=== PATIENT | female | born 1950 | race Caucasian/White ===

== ENCOUNTER → 2021-03-29 | Outpatient (CLI) | payer MEDICARE ==
[~2021-03-29] MED LIST: CITA20; CITA20 PO; ENOX80I; IBUP400; METO25ER; MULVITB; OXYC5; Simvastatin20 MG PO; Vitamin D2000 UNIT PO; WARF6; WARF7.5
[2021-03-29 20:26] LABS: Prothrombin Time Results 48.8 Sec (9.7-11.5)
[2021-03-29 20:30] LABS: International Normalized Ratio 4.95
== END | disposition home or self-care (01) ==
LOC: LAB SHORT 19:07 → LAB 19:07
PROVIDERS: Physician Assistant
DX: Z79.01 Long term (current) use of anticoagulants (principal); Z51.81 Encounter for therapeutic drug level monitoring; Z79.899 Other long term (current) drug therapy
CPT/HCPCS: 85610; 85730

== ENCOUNTER → 2021-08-27 | Outpatient (CLI) | payer MEDICARE ==
[2021-08-27 10:28] LABS: BASOPHILS ABSOLUTE AUTO 0.05 K/mm3 (0.00-0.23); BASOPHILS PERCENT AUTO 1 % (0-2); EOSINOPHILS ABSOLUTE AUTO 0.05 K/mm3 (0.00-0.68); EOSINOPHILS PERCENT AUTO 1 % (0-6); Hematocrit 41.4 % (33.0-51.0); Hemoglobin 14.1 g/dL (11.5-16.0); IMMATURE GRAN ABSOLUTE AUTO 0.01 K/mm3 (0.00-0.10); IMMATURE GRAN PERCENT AUTO 0 % (0-1); LYMPHOCYTES ABSOLUTE AUTO 1.06 K/mm3 (0.84-5.20); LYMPHOCYTES PERCENT AUTO 17 % (21-46); MONOCYTES ABSOLUTE AUTO 0.37 K/mm3 (0.16-1.47); MONOCYTES PERCENT AUTO 6 % (4-13); Mean Corpuscular HGB 29.1 pg (26.0-34.0); Mean Corpuscular HGB Conc 34.1 g/dL (31.5-36.5); Mean Corpuscular Volume 85 fL (80-100); Mean Platelet Volume 9.6 fL (9.1-12.4); NEUTROPHILS ABSOLUTE AUTO 4.66 K/mm3 (1.96-9.15); NEUTROPHILS PERCENT AUTO 75 % (41-73); Platelet Count 266 K/mm3 (150-400); RDW Coefficient Variation 13.1 % (11.7-14.2); RDW Standard Deviation 40.5 fL (35.1-46.3); Red Blood Cell Count 4.85 M/mm3 (3.80-5.20)
[2021-08-27 11:16] LABS: International Normalized Ratio 2.34; Prothrombin Time Results 23.2 Sec (9.7-11.5)
== END | disposition home or self-care (01) ==
LOC: LAB SHORT 10:22
PROVIDERS: Physician Assistant
DX: Z79.01 Long term (current) use of anticoagulants (principal); Z51.81 Encounter for therapeutic drug level monitoring; R19.7 Diarrhea, unspecified
CPT/HCPCS: 85025; 85610

== ENCOUNTER 2024-07-14 16:28 | Emergency (ER) | payer OTHER, MEDICARE ==
[~2024-07-14] VITALS: Ht 160 cm; Wt 56.2 kg
[~2024-07-14 16:28] MED LIST changes: -METO25ER; +METO25ER PO
[2024-07-14 18:54] LABS: BASOPHILS ABSOLUTE AUTO 0.05 K/mm3 (0.00-0.23); BASOPHILS PERCENT AUTO 0 % (0-2); EOSINOPHILS ABSOLUTE AUTO 0.02 K/mm3 (0.00-0.68); EOSINOPHILS PERCENT AUTO 0 % (0-6); Hematocrit 39.9 % (33.0-51.0); Hemoglobin 13.7 g/dL (11.5-16.0); IMMATURE GRAN ABSOLUTE AUTO 0.07 K/mm3 (0.00-0.10); IMMATURE GRAN PERCENT AUTO 1 % (0-1); LYMPHOCYTES ABSOLUTE AUTO 1.13 K/mm3 (0.84-5.20); LYMPHOCYTES PERCENT AUTO 8 % (21-46); MONOCYTES ABSOLUTE AUTO 0.97 K/mm3 (0.16-1.47); MONOCYTES PERCENT AUTO 6 % (4-13); Mean Corpuscular HGB 29.4 pg (26.0-34.0); Mean Corpuscular HGB Conc 34.3 g/dL (31.5-36.5); Mean Corpuscular Volume 86 fL (80-100); Mean Platelet Volume 9.7 fL (9.1-12.4); NEUTROPHILS ABSOLUTE AUTO 12.81 K/mm3 (1.96-9.15); NEUTROPHILS PERCENT AUTO 85 % (41-73); Platelet Count 274 K/mm3 (150-400); RDW Coefficient Variation 13.7 % (11.7-14.2); RDW Standard Deviation 42.9 fL (35.1-46.3); Red Blood Cell Count 4.66 M/mm3 (3.80-5.20); White Blood Cell Count 15.05 K/mm3 (4.00-11.30)
[2024-07-14 19:14] LABS: Albumin, Blood 4.4 g/dL (3.4-5.0); Albumin/Globulin Ratio 1.6 (0.8-1.8); Bilirubin, Total 0.6 mg/dL (0.1-1.0); Bun/Creatinine Ratio 14.5 (12.0-20.0); Calcium, Blood 9.1 mg/dL (8.5-10.1); Creatinine, Blood 0.97 mg/dL (0.40-1.00); Globulin, Blood 2.8 g/dL (2.2-4.0); Total Protein, Blood 7.2 g/dL (6.4-8.2)
[2024-07-14] MEDS ORDERED: Prinivil10 MG PO (19:38)
[2024-07-14] MEDS ORDERED: Oxybutynin Chlor5 M1 PO (19:39)
[2024-07-14 21:01] LABS: International Normalized Ratio 2.3; Prothrombin Time Results 23.1 Sec (9.7-11.5)
[2024-07-14] MEDS ORDERED: Phytonadione 10 MG in NS 50 ML IV ONE (23:05)
[2024-07-15] MEDS ORDERED: Morphine Sulfate 4 MG/1 ML Injection IV ONE (00:45)
[2024-07-15 02:00] VITALS: BP 109/80
== END 2024-07-15 02:13 | disposition short-term general hospital (02) ==
LOC: ER 16:28
PROVIDERS: Emergency Medicine; Student in an Organized Health Care Education/Training Program
DX: S06.340A Traumatic hemorrhage of right cerebrum without loss of consciousness, initial encounter (principal); S20.211A Contusion of right front wall of thorax, initial encounter; R79.89 Other specified abnormal findings of blood chemistry; I10 Essential (primary) hypertension; E78.5 Hyperlipidemia, unspecified; V89.2XXA Person injured in unspecified motor-vehicle accident, traffic, initial encounter; Z79.01 Long term (current) use of anticoagulants; Z79.899 Other long term (current) drug therapy
CPT/HCPCS: 36415; 70450; 71046; 71260; 72125; 74177; 80053; 84484; 85025; 85610; 85730; 93005; 93010; 96365; 96375; 99285-25; J2270; J3430; L0160; Q9967

== ENCOUNTER 2024-07-22 01:26 | Day surgery (SDC) | payer OTHER, MEDICARE ==
[~2024-07-22 01:26] MED LIST changes: +Oxybutynin Chlor5 M1 PO; +Prinivil10 MG PO; +WARF3 PO; -WARF6
[2024-07-22] MEDS ORDERED: Enoxaparin 80 MG/0.8 ML SYR SC SCH (07:15)
[2024-07-22 10:10] VITALS: BP 117/83
[2024-07-22 10:32] LABS: International Normalized Ratio 1.83; Prothrombin Time Results 18.7 Sec (9.7-11.5)
[2024-07-22] MEDS ORDERED: ENOX80I SC (11:49)
[2024-07-22] MEDS ORDERED: JARDIANCE10 MG PO (11:49)
[2024-07-22] MEDS ORDERED: CARV3.125 PO (11:49)
[2024-07-22] MEDS ORDERED: ENTRESTO 24 MG1 EACH PO (11:50)
[2024-07-22] MEDS ORDERED: LEVE500 PO (11:50)
[2024-07-22] MEDS ORDERED: SPIR25 PO (11:51)
[2024-07-22] MEDS ORDERED: THERA-D2000 UNIT PO (11:51)
== END 2024-07-22 10:46 | disposition home or self-care (01) ==
LOC: ATC 01:26
PROVIDERS: Hospitalist
DX: Z95.2 Presence of prosthetic heart valve (principal); I10 Essential (primary) hypertension; Z79.01 Long term (current) use of anticoagulants
CPT/HCPCS: 36415; 85610; 96372; J1650

== ENCOUNTER 2024-07-23 01:06 | Day surgery (SDC) | payer OTHER, MEDICARE ==
[~2024-07-23 01:06] MED LIST changes: +CARV3.125 PO; +ENOX80I SC; +ENTRESTO 24 MG1 EACH PO; +JARDIANCE10 MG PO; +LEVE500 PO; +SPIR25 PO; +THERA-D2000 UNIT PO
[2024-07-23] MEDS ORDERED: Enoxaparin 80 MG/0.8 ML SYR SC SCH (06:50)
[2024-07-23 09:52] VITALS: BP 100/69
[2024-07-23 10:35] LABS: International Normalized Ratio 1.68; Prothrombin Time Results 17.3 Sec (9.7-11.5)
== END 2024-07-23 10:45 | disposition home or self-care (01) ==
LOC: ATC 01:06
PROVIDERS: Hospitalist
DX: Z95.2 Presence of prosthetic heart valve (principal); I10 Essential (primary) hypertension; Z79.01 Long term (current) use of anticoagulants
CPT/HCPCS: 85610; 96372; J1650

== ENCOUNTER 2024-07-24 06:50 | Day surgery (SDC) | payer OTHER, MEDICARE ==
[2024-07-24] MEDS ORDERED: Enoxaparin 80 MG/0.8 ML SYR SC SCH (06:55)
[2024-07-24 08:28] VITALS: BP 120/87
[2024-07-24 09:10] LABS: International Normalized Ratio 1.98; Prothrombin Time Results 20.1 Sec (9.7-11.5)
== END 2024-07-24 08:29 | disposition home or self-care (01) ==
LOC: ATC 06:50
PROVIDERS: Hospitalist
DX: Z95.2 Presence of prosthetic heart valve (principal); I10 Essential (primary) hypertension; Z79.01 Long term (current) use of anticoagulants
CPT/HCPCS: 36415; 85610; 96372; J1650

== ENCOUNTER 2024-07-25 02:37 | Day surgery (SDC) | payer OTHER, MEDICARE ==
[2024-07-25] MEDS ORDERED: Enoxaparin 80 MG/0.8 ML SYR SC SCH (06:00)
[2024-07-25 08:19] VITALS: BP 126/84
[2024-07-25 08:46] LABS: International Normalized Ratio 2.61
== END 2024-07-25 08:54 | disposition home or self-care (01) ==
LOC: ATC 02:37
PROVIDERS: Hospitalist
DX: Z95.2 Presence of prosthetic heart valve (principal); I10 Essential (primary) hypertension; Z79.01 Long term (current) use of anticoagulants
CPT/HCPCS: 36416; 85610; 99211